=== PATIENT | female | born 1960 | race Caucasian/White ===

== ENCOUNTER → 2017-02-07 | Outpatient (CLI) | payer OTHER | LOC: FIMAGING 07:41 | PROVIDERS: ATTEND Internal Medicine | DX: Z12.31 Encounter for screening mammogram for malignant neoplasm of breast (principal) | CPT/HCPCS: G0202 ==

== ENCOUNTER → 2018-03-03 | Outpatient (CLI) | payer OTHER | LOC: FIMAGING 16:00 | PROVIDERS: ATTEND Internal Medicine | DX: Z12.31 Encounter for screening mammogram for malignant neoplasm of breast (principal) ==

== ENCOUNTER → 2018-03-19 | Outpatient (CLI) | payer OTHER | LOC: FIMAGING 15:11 → EDSTATUS 15:13 | PROVIDERS: ATTEND Nurse Practitioner Family | DX: R05 Cough (principal) ==

== ENCOUNTER 2018-06-14 05:50 | Observation (INO) | payer OTHER ==
--- NOTE | 2018-06-13 18:11 | GHP ---
HISTORY: This is a 57-year-old female who presents with left knee pain and swelling. Her knees have been painful for years. She has undergone a successful right total knee arthroplasty. Her left aneudy hitchcock has had workup including x-rays that show tricompartment osteoarthritis, most severe in the medial compartment with subchondral sclerosis, joint space narrowing and degenerative lipping. The left aneudy hitchcock has had numerous conservative measures, she has had injections, she has lost weight, she has mainta ined her physical fitness and done exercises. She continues to have significant left knee pain, incl uding with activities of daily living with swelling, limited range of motion, alteration of her gait. A left total knee arthroplasty is planned. 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 She receives injections for this. PAST SURGICAL HISTORY: Include: A tonsillectomy. She has had a right total knee arthroplasty. MEDICATIONS: Include: Advair 150/50 mg p.o. daily. Levothyroxine 125 mcg daily, Zoloft 150 mg p.o. daily, losartan/hydrochlorothiazide 100/25 p.o. daily, Wellbutrin XL 150 mg p.o. daily. Immunoglobu fariha, she uses nutritional supplements. SOCIAL HISTORY: She is a nonsmoker. ALLERGIES: Has no known drug allergies. PHYSICAL EXAM: GENERAL: This is a well-developed, well-nourished female in no apparent distress. H EENT: Head normocephalic, atraumatic. CHEST: Clear. CARDIOVASCULAR: Regular rate and rhythm. AB DOMEN: Soft. NEUROLOGIC: Alert, oriented x3. EXTREMITIES: Examination of the left knee demonstra garth slight flexion contracture, small effusion. She is flexing to about 110 degrees. She has tender ness especially along the medial joint line. She tends toward varus alignment. SKIN/NEUROVASCULAR: Exams are intact. IMPRESSION: Left knee osteoarthritis. PLANS: Left total knee arthroplasty. Benefits and risks of surgery have been reviewed. She has sig juan a consent form and wishes to proceed. She understands that the risks include infection, damage t o blood vessel or nerve failure, loosening of components, bleeding and need for transfusion and she u nderstands the rigorous nature of the rehabilitation, having gone through this procedure on the oppos ite side. Though she has an immunodeficiency disorder, she does not tend to be prone to skin infecti ons. She has no problem with her opposite total knee. She has signed a consent form, wishes to proc eed with her left side now, total knee arthroplasty. /[id number]/MODL
[2018-06-14] MEDS ORDERED: TRANEXAMIC ACID 2,000 MG in NS 100 ML IV ONE (06:00)
[2018-06-14] MEDS ORDERED: ROPIVACAINE 0.2% 80 MG, EPINEPHrine 0.2 MG, KETOROLAC TROMETHAMINE 30 MG in SYRINGE 0 ML IU ONE (06:00)
[2018-06-14] MEDS ORDERED: POVIDONE-IODINE 20 ML in SODIUM CL IRRIG SOLUTION 500 ML IRR ONE (06:00)
[2018-06-14] MEDS ORDERED: TRANEXAMIC ACID 1,000 MG in NS 100 ML IV ONE (06:00)
[2018-06-14] MEDS ORDERED: ONDANSETRON 4 MG/2 ML VIAL IVP ONE (06:03)
[2018-06-14] MEDS ORDERED: ACETAMINOPHEN 325 MG TAB PO ONE (06:03)
[2018-06-14] MEDS ORDERED: ceFAZolin 2 GM/DEXTROSE 100 ML IV ONE (06:03)
[2018-06-14] MEDS ORDERED: FAMOTIDINE 20 MG TAB PO ONE (06:03)
[2018-06-14] MEDS ORDERED: GABAPENTIN 300 MG CAP PO ONE (06:03)
[2018-06-14] MEDS ORDERED: DEXAMETHASONE 4 MG/ML VIAL IVP ONE (06:03)
[2018-06-14] MEDS ORDERED: LR 1,000 ML IV ONE (06:04)
--- NOTE | 2018-06-14 06:47 | PDANEPAE ---
ANE Past Medical History - Cardiovascular History Hx Hypertension: Yes Hx Arrhythmias: No Hx Chest Pain: No Hx Coronary Artery / Peripheral Vascular Disease: No Hx CHF / Valvular Disease: No Hx Palpitations: No - Pulmonary History Hx COPD: No Hx Asthma/Reactive Airway Disease: Yes Hx Recent Upper Respiratory Infection: No Hx Oxygen in Use at Home: No Hx Sleep Apnea: No Sleep Apnea Screening Result - Last Documented: Positive Pulmonary History Comment: ASTHMA - Neurologic History Hx Cerebrovascular Accident: No Hx Seizures: No Hx Dementia: No - Endocrine History Hx Diabetes: No Endocrine History Comment: THYROID - Renal History Hx Renal Disorders: No - Liver History Hx Hepatic Disorders: No - Neurological & Psychiatric Hx Hx Neurological and Psychiatric Disorders: Yes Neurological / Psychiatric History Comment: DEPRESSION - Cancer History Hx Cancer: Yes Cancer History Comment: SKIN CA - Congenital Disorder History Hx Congenital Disorders: No - GI History Hx Gastrointestinal Disorders: Yes Gastrointestinal History Comment: REFLUX - Other Health History Other Health History: IMMUNOTHERAPY IVIG - Chronic Pain History Chronic Pain: Yes (BACK ISSUES) - Surgical History Prior Surgeries: TONSILS, COLONOSCOPY. R TKA ANE Review of Systems Review of Systems: - Exercise capacity METS (RN): 4 METS ANE Patient History - Allergies Allergies/Adverse Reactions: No Known Allergies Allergy (Verified 05/19/16 15:23) - Home Medications Home medications: home medication list seen and reviewed Home Medications: Omeprazole [Prilosec 20 mg] 20 mg PO DAILY18 12/06/14 [Last Taken 06/14/18 04:30 ] Sertraline HCl [Zoloft 50mg (*)] 150 mg PO DAILY 12/06/14 [Last Taken 06/14/18 04:30] Aspirin [Aspirin 325 mg (*)] 325 mg PO DAILY 05/13/16 [Last Taken 06/07/18] Cholecalciferol Vit D3 [Vitamin D3 (*)] 5,000 units PO DAILY 05/13/16 [Last Taken 06/07/18] Fluticasone/Salmeter 100/50Mcg [Advair 100/50 (*)] 1 puffs IH BID 05/13/16 [ Last Taken 06/14/18 04:30] Herbals/Supplements -Info Only 1 ea PO DAILY 05/13/16 [Last Taken 06/07/18] Levothyroxine [Synthroid 125 mcg (*)] 125 mcg PO DAILY06 05/13/16 [Last Taken 04:30] Losartan/Hydrochlorothiazide [Hyzaar 100-25 Tablet] 1 each PO DAILY 05/13/16 [ Last Taken 1 Day Ago ~06/13/18] Methocarbamol [Robaxin 500 mg (*)] 500 mg PO QID PRN 05/13/16 [Last Taken ] Gamunex Ivig 600 mg IV Q30D 06/16/16 [Last Taken 06/11/18] buPROPion XL [Wellbutrin Xl] 150 mg PO DAILY 06/03/18 [Last Taken 06/11/18] - NPO status NPO Status: no food or drink >8 hours NPO Since - Liquids (Date): 06/13/18 NPO Since - Liquids (Time): 21:00 NPO Since - Solids (Date): 06/13/18 NPO Since - Solids (Time): 18:00 - Smoking Hx Smoking Status: Former smoker - Family Anes Hx Family Hx Anesthesia Complications: NONE ANE Labs/Vital Signs - Labs - CBC Platelet Count: 276 04/2018 - Vital Signs Vital Signs: reviewed preoperatively; see RN documention for details Blood Pressure: 145/87 Heart Rate: 83 Respiratory Rate: 14 O2 Sat (%): 91 Height: 167.64 cm Weight: 113.398 kg ANE Physical Exam - Airway Neck exam: FROM Mallampati Score: Class 3 Mouth exam: normal dental/mouth exam - Pulmonary Pulmonary: no respiratory distress - Cardiovascular Cardiovascular: regular rate and rhythym - ASA Status ASA Status: III ANE Anesthesia Plan Anesthesia Plan: spinal Regional Anesthesia: single shot NB
[2018-06-14] MEDS ORDERED: ceFAZolin 1 GM/5 ML SYR ONE (06:54)
[2018-06-14] MEDS ORDERED: MIDAZOLAM 2 MG/2 ML VIAL IVP ONE (07:02)
[2018-06-14] MEDS ORDERED: PROPOFOL/EMULSION 500 MG/50 ML BOTTLE IV ONE ×3 (07:08→08:57)
--- NOTE | 2018-06-14 07:22 | PDHPUP ---
History & Physical Update H&P update statement: This history and physical update is based on an assessment of the patient which was completed after admission or registration (within 24 hours), but prior to the surgery/procedure. no change H&P update: no change in patient's condition since H&P completed (no change)
--- NOTE | 2018-06-14 08:09 | POSTANESTH ---
Post Anesthetic Evaluation Cardiovascular Status: Normal, Stable Respiratory Status: Normal, Stable Level of Consciousness/Mental Status: Can Participate in Eval Pain Control: Adequate, Prn Tx Ordered Nausea/Vomiting Control: Adequate, Prn Tx Ordered Complications Possibly Related to Anesthesia: None Noted
[2018-06-14] MEDS ORDERED: NALOXONE HCL 0.4 MG/ML INJ IVP PRN (09:18)
[2018-06-14] MEDS ORDERED: HYDROmorphONE/DILAUDID 2 MG/ML INJ IVP PRN (09:18)
[2018-06-14] MEDS ORDERED: fentaNYL 100 MCG/2 ML INJ IVP PRN (09:18)
[2018-06-14] MEDS ORDERED: oxyCODONE IR 5 MG TAB PO PRN (09:18)
[2018-06-14] MEDS ORDERED: DIAZEPAM 5 MG/ML 1 ML SYR IVP PRN (09:18)
[2018-06-14] MEDS ORDERED: ACETAMINOPHEN 500 MG TAB PO PRN (09:18)
[2018-06-14] MEDS ORDERED: METOCLOPRAMIDE 10 MG/2 ML VIAL IVP PRN ×2 (09:18→09:44)
[2018-06-14] MEDS ORDERED: MEPERIDINE 25 MG/0.5 ML AMP IVP PRN (09:18)
[2018-06-14] MEDS ORDERED: LR 500 ML IV PRN (09:18)
[2018-06-14] MEDS ORDERED: LABETALOL HCL 20 MG/4 ML INJ IVP PRN (09:18)
[2018-06-14] MEDS ORDERED: ONDANSETRON 4 MG/2 ML VIAL IVP PRN ×2 (09:18→09:44)
[2018-06-14] MEDS ORDERED: ALBUTEROL 3 ML DEYVIAL IH PRN (09:18)
[2018-06-14] MEDS ORDERED: PHENYLEPHRINE HCL 100 MCG/ML SYR IVP PRN (09:18)
[2018-06-14] MEDS ORDERED: PROMETHAZINE HCL 25 MG/ML INJ IVP PRN ×2 (09:18→09:44)
[2018-06-14] MEDS ORDERED: ROPIVACAINE HCL 150 MG/30 ML INJ ONE (09:21)
[2018-06-14] MEDS ORDERED: PROMETHAZINE HCL 25 MG SUPPR PR PRN (09:44)
[2018-06-14] MEDS ORDERED: DIPHENOXYLATE/ATROPINE LOMOTIL 1 TAB PO PRN (09:44)
[2018-06-14] MEDS ORDERED: POLYETHYLENE GLYCOL 3350 17 GM PKT PO PRN (09:44)
[2018-06-14] MEDS ORDERED: KETOROLAC 15 MG/1 ML SDV IVP ONE (09:44)
[2018-06-14] MEDS ORDERED: ONDANSETRON DISINTEGRATING 4 MG TAB PO PRN (09:44)
[2018-06-14] MEDS ORDERED: LACTULOSE 20 GM/30 ML UDCUP PO PRN (09:44)
[2018-06-14] MEDS ORDERED: TEMAZEPAM 15 MG CAP PO PRN (09:44)
[2018-06-14] MEDS ORDERED: BISACODYL 10 MG SUPP PR PRN (09:44)
[2018-06-14] MEDS ORDERED: CYCLOBENZAPRINE 10 MG TAB PO PRN (09:44)
[2018-06-14] MEDS ORDERED: diphenhydrAMINE 25 MG CAP PO PRN (09:44)
[2018-06-14] MEDS ORDERED: MAGNESIUM HYDROXIDE 30 ML UDCUP PO PRN (09:44)
[2018-06-14] MEDS ORDERED: METHOCARBAMOL 500 MG TAB PO PRN (09:47)
[2018-06-14] MEDS ORDERED: KETOROLAC 15 MG/1 ML SDV ONE (09:58)
[2018-06-14] MEDS ORDERED: LR 1,000 ML IV SCH (10:00)
[2018-06-14] MEDS ORDERED: BUPIVACAINE/DEXTROSE 7.5MG/ML 2 ML SPINAL AMP SP ONE (10:03)
--- NOTE | 2018-06-14 11:09 | GOP ---
DATE OF OPERATION: 06/14/2018 SURGEON: Ashish Sherman MD HARDWARE DEVELOPER: NANDA Patel, LSA. ANESTHESIOLOGIST: Dr. Liudmila Weiss PREOPERATIVE DIAGNOSIS: Left knee osteoarthritis. POSTOPERATIVE DIAGNOSIS: Left knee osteoarthritis. PROCEDURE PERFORMED: Left total knee arthroplasty. FINDINGS: SPECIMENS: Excised bone. ESTIMATED BLOOD LOSS: Minimal. INDICATIONS: The patient is a 57-year-old female who has severe left knee osteoarthritis, predominan tly medial compartment, which is [id number]. She has tried appropriate nonoperative measures. A l eft total knee arthroplasty is planned. DESCRIPTION OF PROCEDURE: The patient was taken to the operating room, and a spinal block was provid ed by Dr. Weiss. She received preoperative antibiotic as well as tranexamic acid. In the supine posit ion, a rolled towel was placed beneath the left hip to neutralize the rotation. She has a slight fle xion contracture. The left lower extremity was prepped and draped with chlorhexidine free in the usu al fashion. The limb was elevated, exsanguinated, and the tourniquet inflated to 300 mmHg. I made a longitudinal incision in the midline, used a medial parapatellar arthrotomy. I prepared the patella first. I removed rimming osteophytes. I measured its thickness at 22 mm. I removed 9 mm o f cartilage and bone and sized the patella surface to a 38. I drilled peg holes. The trial componen ts fit well and reestablished the patella's thickness. The patella was inverted and the knee was fle xed. I drilled a fixed wing pilot hole in the distal femur, used an intramedullary device on the femur, 5 degrees of valgus, +2 of extra cut, and made a distal bone cut. I sized the distal femur between a 6 and a 7, a nd downsized to a size 6. I moved the cutting block anterior to avoid notching. I completed the ant erior, posterior, and camphor cuts and the notch cuts for this bi-cruciate stabilized knee and the tr ial was a good fit. On the tibia, I used an extramedullary guide. I adjusted the cut depth, rotatio n, posterior slope. I made my cut and sized the tibia at a size 5, dialed in the rotation, and compl eted the tibial prep. I used antibiotic irrigation throughout the knee. All the trial components were removed. All the amira ny surfaces were jet lavaged with irrigation and dried. Cement was used for all 3 components. While the cement was hardening, I used a little compression with a [address]. Once the cement hardened, I trialed different thickness articular trays, I found the size 10 provided excellent stabi lity, full extension, good rollback in flexion. The patella tracked nicely, so a size 10 articular t ray was snapped into place. The tourniquet was let down at about an hour and 15 minutes. I used Betadine irrigation and antibiot ic irrigation. The arthrotomy was closed with interrupted [id number] sutures of 0 [place], th e subcutaneous tissue was closed with 2-0 Monocryl, and the skin was closed with juliocesar. The wound was dressed with Betadine-soaked Adaptic, 4 x 4, sterile Webril, and a long-leg SRI stocking was appl ied. COMPLICATIONS: There were no complications. DRAINS: No drains. COUNTS: All counts were correct and the patient was taken in stable condition to recovery. My neurosurgical nurse practitioner was a medical necessity for leg positioning, soft tissue retraction for this to kala knee replacement. SUMMARY OF COMPONENTS: This is a [employer] knee, bi-cruciate stabilized. The femur i s Oxinium. All components cemented, femur size 6, tibia size 5, patella 38, and the articular tray i s 10 mm thick. /[id number]/MODL
[2018-06-14] MEDS: ACETAMINOPHEN 325 MG TAB PO SCH ×3 (12:13→23:33)
[2018-06-14] MEDS: ceFAZolin 2 GM/DEXTROSE 100 ML IV SCH ×2 (14:37→20:51)
[2018-06-14] MEDS ORDERED: PANTOPRAZOLE SODIUM 40 MG TAB PO SCH (18:00)
[2018-06-14] MEDS: oxyCODONE IR 5 MG TAB PO PRN ×2 (18:57→20:58)
[2018-06-14] MEDS: SENNOSIDES/DOCUSATE SODIUM TAB PO SCH (20:51)
[2018-06-14] MEDS: FAMOTIDINE 20 MG TAB PO SCH (20:51)
[2018-06-14] MEDS: ASPIRIN 81 MG CHEWABLE TAB PO SCH (21:21)
[2018-06-15] MEDS: FLUTICASONE/SALMETER 100/50MCG DISKUS IH SCH ×2 (00:07→08:30)
[2018-06-15] MEDS: oxyCODONE IR 5 MG TAB PO PRN ×3 (04:39→11:13)
[2018-06-15] MEDS: ACETAMINOPHEN 325 MG TAB PO SCH ×2 (04:41→11:13)
[2018-06-15] MEDS ORDERED: LEVOTHYROXINE 125 MCG TAB PO SCH (06:00)
[2018-06-15 07:48] VITALS: BP 161/89
--- NOTE | 2018-06-15 07:59 | SOAPPROG ---
SOAP Progress Note Assessment/Plan: Assessment: 06/15/18 POD#1 L TKA. pain controlled, Hct 31.9, xray fine Plan: 06/15/18 07:57 PT/OT and home, asa,tyl, oxy, celebrex, start outpt PT 1 wk Objective: Vital Signs Temp Pulse Resp BP Pulse Ox 36.6 C 69 12 161/89 H 95 06/15/18 07:47 06/15/18 07:47 06/15/18 07:47 06/15/18 07:47 06/15/18 07:47 Laboratory Results 06/15/18 04:20 06/14/18 06/15/18 06/16/18 05:59 05:59 05:59 Intake Total 2250 350 Output Total 2350 300 Balance -100 50 ICD10 Worksheet Patient Problems: Problems Problem Status Onset Osteoarthritis of right knee Acute
[2018-06-15] MEDS: FAMOTIDINE 20 MG TAB PO SCH (08:26)
[2018-06-15] MEDS: SENNOSIDES/DOCUSATE SODIUM TAB PO SCH (08:27)
[2018-06-15] MEDS: ASPIRIN 81 MG CHEWABLE TAB PO SCH (08:27)
[2018-06-15] MEDS ORDERED: buPROPion XL 150 MG TAB PO SCH (09:00)
[2018-06-15] MEDS ORDERED: Herbals/Supplements -Info Only PO SCH (09:00)
[2018-06-15] MEDS ORDERED: LOSARTAN/HCTZ 50/12.5 1 TAB PO SCH (09:00)
[2018-06-15] MEDS ORDERED: CHOLECALCIFEROL VIT D3 1,000 UNITS TAB PO SCH (09:00)
[2018-06-15] MEDS ORDERED: SERTRALINE HCL 50 MG TAB PO SCH (09:00)
--- NOTE | 2018-06-15 09:16 | ASDISCHSUM ---
Discharge Information Plan Status:Home with No Needs Medically Cleared to Leave:06/14/2018 Discharge Date:06/14/2018 CM D/C Disposition:Home, Routine, Self-Care ADT D/C Disposition: Projected Discharge Date:06/15/2018 12:00 AM Transportation at D/C:Family Discharge Delay Reason: Follow-Up Date:06/15/2018 12:00 AM Discharge Slot: Final Diagnosis: Placement Information Patient Contact Information Contact Name:ISH Relationship:Sister Address: Work Phone: City: [facility] Phone: State/[place] Email: Financial Information Financial Class:[facility] Primary Plan Desc:[employer] OPEN [employer] LOCAL Primary Plan Number:[id number] Secondary Plan Desc: Secondary Plan Number: Assessment Information Case Management Discharge Plan Note Case Management Discharge Discharge Order Complete? Answers: Yes Patient to Obtain Answers: via Family Medications Transportation Arranged Answers: Family/Friends Discharge Comments Notes: Pt being discharged independently. No CM needs identified. Family to transport. Date Signed: 06/15/2018 09:15 AM Electronically Signed By:ED Hernandez Intervention Information
[2018-07-13] MEDS ORDERED: IMMUNE GLOBULIN IV SCH (10:00)
== END 2018-06-15 11:46 | disposition home or self-care (01) ==
LOC: F3E 05:50 → F3N 10:41
PROVIDERS: ADMIT Orthopaedic Surgery; ATTEND Orthopaedic Surgery
PROC: 0SRD0J9 Replacement of Left Knee Joint with Synthetic Substitute, Cemented, Open Approach (ICD-10-PCS; principal; 2018-06-14 07:22)
DX: M17.12 Unilateral primary osteoarthritis, left knee (principal); J45.909 Unspecified asthma, uncomplicated; E03.9 Hypothyroidism, unspecified; K21.9 Gastro-esophageal reflux disease without esophagitis; D83.9 Common variable immunodeficiency, unspecified; I10 Essential (primary) hypertension; F32.9 Major depressive disorder, single episode, unspecified; Z87.891 Personal history of nicotine dependence; Z96.651 Presence of right artificial knee joint
CPT/HCPCS: 27447; 73560; 97116; 97161; 97165; 97530; G0378; C1713; J0171; J0690; J1100; J1885; J2250; J2405; J2704; J2795